=== PATIENT | female | born 1955 | race Caucasian/White ===

== ENCOUNTER → 2016-08-09 | Outpatient (CLI) | payer BC ==
[~2016-08-09] MED LIST: LOPRESSOR PO
--- NOTE | ~2016-08-09 | MY11 ---
[facility] A Service of [facility] RADIOLOGY TEXT RESULTS PATIENT: CARLI SPRAGUE LOCATION: [facility] : 57 UNIT #: [id number] AGE: [address]: Arpit Salinas MD SEX: F ORDER DR: [id number] [facility]. [place], [place] [address] [id number] O MR#: [id number] Acc #: [id number] NAME: CARLI SPRAGUE : 1955 SEX: F STUDY DATE/TIME: 08/09/2016 8:03 UNIT: [facility] ROOM: STUDY DESCRIPTION: MY Mammogram Screening Dig [facility] Attending Physician: Arpit Salinas M.D. Referring Physician: Arpit Salinas M.D. Ordering Physician: Arpit Salinas M.D. Primary Care Physician: Arpit Salinas M.D. MEDICAL IMAGING REPORT This report is preliminary unless electronic signature is present EXAM Bilateral screening mammogram. HISTORY Routine screening. No current complaints. Family history of breast cancer in mother. COMPARISON 05/14/2015 04/27/2014 04/12/2013. FINDINGS MLO and CC digital views of each breast were obtained. The exam was reviewed with FDA-approved CAD. Breasts are almost entirely fatty replaced. There are no masses or abnormal calcifications. There has been no change. IMPRESSION No change and no evidence of malignancy. Patients over the age of 40 are entered into a reminder system with target due date for the next mammogram. A result letter will also be sent to the patient. BIRADS: 1 Negative. Dictated by... Carmine Colindres M.D. THIS IS AN ELECTRONICALLY VERIFIED REPORT Carmine Colindres M.D. at 08/09/2016 11:59 AM JEFFERY/carmen TD: 08/09/2016 11:43 JOB #: [id number] [facility] A Service of [facility] RADIOLOGY TEXT RESULTS PATIENT: CARLI SPRAGUE LOCATION: [facility] : 57 UNIT #: [id number] AGE: [address]: Arpit Salinas MD SEX: F ORDER DR: MEDICAL IMAGING REPORT COPY
== END | disposition home or self-care (01) ==
LOC: CWCC 07:36
DX: Z12.31 Encounter for screening mammogram for malignant neoplasm of breast (principal); Z80.3 Family history of malignant neoplasm of breast
CPT/HCPCS: G0202